=== PATIENT | male | born 1985 | race Caucasian/White ===

== ENCOUNTER 2021-07-26 08:38 | Emergency (ER) | payer SELFPAY ==
[2021-07-26] MEDS ORDERED: Ondansetron PF 4 MG/2 ML Vial ONE (09:08)
[2021-07-26] MEDS ORDERED: Morphine 4 MG/ML VIAL ONE (09:08)
[2021-07-26] MEDS ORDERED: Fentanyl 100 MCG/2 ML VIAL ONE (09:48)
[2021-07-26] MEDS ORDERED: Midazolam HCl 2 mg/2 ml Vial ONE ×2 (09:48→10:08)
== END 2021-07-26 10:51 | disposition home or self-care (01) ==
LOC: BURERS 08:38
DX: S43.015A Anterior dislocation of left humerus, initial encounter (principal); S43.402A Unspecified sprain of left shoulder joint, initial encounter; F17.210 Nicotine dependence, cigarettes, uncomplicated; W17.89XA Other fall from one level to another, initial encounter
CPT/HCPCS: 23650; 96374; 96375; 99152; J2250; J2270; J2405; J3010